=== PATIENT | male | born 1955 | race Caucasian/White ===

== ENCOUNTER → 2020-07-05 | Outpatient (CLI) | payer OTHER ==
[~2020-07-05] MED LIST: OMEPRAZOLE 20 M20 MG PO
== END ==
LOC: M.MRI 08:03
PROVIDERS: ATTEND Orthopaedic Surgery
DX: M25.462 Effusion, left knee (principal); M23.92 Unspecified internal derangement of left knee; M94.262 Chondromalacia, left knee; R60.0 Localized edema

== ENCOUNTER → 2020-07-20 | Outpatient (CLI) | payer OTHER ==
[~2020-07-20] MED LIST changes: +ACETAMINOPHEN500 M1 PO; +LISINOPRIL-HCT1 EACH PO; +PROTONIX40 M2 PO
[2020-07-20 10:40] LABS: HEMATOCRIT 46.9 % (42.0-52.0); HEMOGLOBIN 15.5 gm/dL (14.0-18.0); MCHC 33.1 g/dL (28.0-37.0); MCV 87.8 fL (80.0-100.0); MPV 8.2 fl. (7.2-11.1); RBC 5.34 mil/uL (4.50-6.00); RDW-CV 13.8 % (10.5-14.5); WBC 11.8 thou/uL (4.0-11.0)
[2020-07-20 10:48] LABS: URINE BILIRUBIN NEGATIVE (Negative); URINE BLOOD TRACE (Negative); URINE CLARITY CLEAR; URINE COLOR YELLOW; URINE GLUCOSE-RANDOM NEGATIVE (Negative); URINE KETONES NEGATIVE (Negative); URINE LEUKOCYTES-REFLEX NEGATIVE (Negative); URINE NITRITE-REFLEX NEGATIVE (Negative); URINE PROTEIN NEGATIVE (Negative); URINE UROBILINOGEN 0.2 E.U./dl (0.2-1.0)
[2020-07-20 10:55] LABS: PROTIME 10.5 Seconds (9.20-11.50)
[2020-07-20 10:58] LABS: ALBUMIN 3.7 g/dL (3.4-5.0); CALCIUM 10.6 mg/dL (8.5-10.1); POTASSIUM 4.3 mmol/L (3.5-5.1); TOTAL BILIRUBIN 0.6 mg/dL (<0.1-1.0); TOTAL PROTEIN 8.2 g/dL (6.4-8.2)
--- NOTE | 2020-07-20 15:43 | EKG ---
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
== END ==
LOC: M.LAB 10:27
PROVIDERS: ATTEND Orthopaedic Surgery
DX: Z01.812 Encounter for preprocedural laboratory examination (principal); Z20.828 Contact with and (suspected) exposure to other viral communicable diseases; M17.12 Unilateral primary osteoarthritis, left knee; I49.9 Cardiac arrhythmia, unspecified

== ENCOUNTER 2020-07-27 08:37 | Inpatient (IN) | payer OTHER ==
[~2020-07-27] VITALS: Ht 170.2 cm; Wt 99.8 kg
--- NOTE | ~2020-07-27 | OP ---
[facility] [address] [place] [address] OPERATIVE REPORT Name: CHANO MUSTAFA Room: [address] .R.#: [id number] Admission: 07/27/20 Attend Phys: Ivonne Palma Discharge: Date of : 53 Report #: [id number] THIS REPORT FOR: //name// cc: Mani Pinon Matthew DO ~ CC: Mani Rice DATE OF SERVICE: 07/27/2020 PREOPERATIVE DIAGNOSIS: Left knee osteoarthritis. POSTOPERATIVE DIAGNOSIS: Left knee osteoarthritis. PROCEDURE: Left total knee arthroplasty. SURGEON: Herbie Hernández DO RECONCILEMENT CLERK: TJ Silva ANESTHESIA: General endotracheal. ESTIMATED BLOOD LOSS: 50 mL. ANTIBIOTICS: Ancef preoperatively. DRAINS: Medium Hemovac. COMPLICATIONS: None. CONDITION OF THE PATIENT: Stable to recovery room. IMPLANTS: Listed in operative record and progress note. BRIEF HISTORY: The patient was seen in the preoperative area. Preoperative H and P was performed. Site was marked, questions were answered. Risks and benefits were discussed with the patient in detail about surgery. The patient wished to proceed, assuming all risks. DESCRIPTION OF PROCEDURE: The patient was taken to the operative suite and placed supine on the operative table, given appropriate anesthesia. A well-padded tourniquet was applied to the upper thigh, which was inflated to 300 mmHg after gravity exsanguination for the duration of procedure. The operative knee was sterilely prepped and draped. Surgery began by midline incision. This was carried down to the subcutaneous tissues. A medial [place] [address] OPERATIVE REPORT Name: CHANO MUSTAFA Room: [address] M.R.#: [id number] Admission: 07/27/20 Attend Phys: Ivonne Palma Discharge: Date of : 53 Report #: [id number] was performed and carried down to bone. Patella was then everted and excess soft tissue was removed from the femur. Femoral cutting block was then applied, checked with drop carter for rotational alignment and slope, pinned in appropriate position and appropriate cuts were made. A 4-in-1 cutting block was then applied, checked with drop carter for rotational alignment, pinned in appropriate position and appropriate cuts were made. The appropriate bone was removed. The tibia was then exposed and excess meniscus was removed. Retractor was placed on the collateral ligaments. Tibial cutting block was then applied, pinned in appropriate position, checked with drop carter for rotational alignment and slope and appropriate cut was made. Tibial bone was removed. Tibial base plate was then applied, checked for rotational alignment with the drop carter and pinned in appropriate position. The femur was then applied and box cut was reamed. This was trialed with appropriate spacer, which showed excellent fit and fill and excellent stability of the knee through all range of motion. The patella was reamed in appropriate fashion and sized to appropriate size. Three peg holes were drilled and it was then trialed and showed excellent flexion and extension, excellent tracking of the patella within the groove. These trials were then removed. The tibia was punched in appropriate fashion. Bone ends were cleansed with Pulsavac irrigation and cement was mixed and applied to final implants. These were then malleted into position and held the knee in extension and compressed to allow cement to cure. After it cured, excess was removed using [place] and osteotome. Wound was then copiously irrigated and the final spacer was then malleted into position. Tourniquet was deflated. Hemostasis was obtained with electrocautery. Pain cocktail was injected. PRP gel sprayed throughout the internal aspects of the knee. Medium Hemovac drain was applied. Capsule was closed with 2 FiberWire and 1 Vicryl in [id number] fashion. Skin was closed with 2-0 Vicryl and running 3-0 Monocryl. Dermabond and sterile dressing applied. Wallace wrap and PolarCare applied. The patient transported to recovery room in stable condition. Counts were correct throughout the procedure. By: [id number] Hernández II, DO /nt
[2020-07-27 09:18] VITALS: BP 137/84
[2020-07-27 18:01] VITALS: BP 128/68
[2020-07-27 20:00] VITALS: BP 132/70
[2020-07-28] VITALS (7 sets, daily range): BP systolic 99–127; BP diastolic 54–72
[2020-07-28 06:20] LABS: HEMATOCRIT 37.1 % (42.0-52.0); HEMOGLOBIN 12.7 gm/dL (14.0-18.0)
--- NOTE | 2020-07-28 07:30 | NUR ---
PATIENT SLEPT WELL DURING THIS SHIFT. PT GIVEN PERCOCET 2 TABS FOR PAIN. PT ON CPM THIS AM. PT WITH FLUIDS/ANTIBIOTICS INFUSING PER DR ORDER. PT VOIDS CLEAR YELLOW URINE. PT DENIES PAIN AT THIS TIME. FREQUENTLY USED ITEMS AND CALL LIGHT WITHIN REACH. SIDERAILS UP X2. WILL CONTINUE TO MONITOR.
[2020-07-28] MEDS ORDERED: XARELTO10 MG PO (08:53)
[2020-07-28] MEDS ORDERED: HYDROCODON-ACE1 EAC7 PO (08:53)
--- NOTE | 2020-07-28 15:39 | NUR ---
PATIENT DISCHARGED TO HOME AT THIS TIME. PARTICIPATED IN THERAPIES THIS AM AND AFTERNOON. IV DC'D. CPM USED THIS AM. HEMOVAC DC'D PER PROTOCOL. VERBALIZES UNDERSTANDING OF PAPERWORK AND SCRIPTS. PATIENT TAKEN OUT VIA WHEELCHAIR WITH ALL BELONGINGS.
--- NOTE | 2020-07-28 17:31 | NUR ---
PT.LIVES WITH . SHE WILL BE WITH HIM AT HOME TO ASSIST NEEDED. HE HAS A WALKER FOR HOME USE. CM CALLED IN [employer] PRESCRIPTION WRITTEN TO HIS PHARMACY. 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 PT.CHOSE [facility] . FAXED REFERRAL INFORMATION, DISCHARGE SUMMARY AND MED ORDERS TO [facility] [phone]. INFORMED OF DISCHARGE TODAY.
--- NOTE | 2020-07-28 18:18 | NUR ---
LATE ENTRY-RECIEVED O.T. ORDERS. WILL DEFER TO P.T. AT THIS TIME. PLEASE ORDER FURTHER O.T. SERVICES IF NEEDED.
== END 2020-07-28 15:43 | disposition home health service (06) | DRG 470 ==
LOC: M.TBA 08:37 → M.3W 10:30 → M.TBA 10:30 → EDSTATUS 10:52 → M.SUR 10:56 → EDSTATUS 11:01 → M.PRE 12:25 → M.3W 17:10
PROVIDERS: Orthopaedic Surgery; ADMIT Internal Medicine; ATTEND Internal Medicine
DX: M17.12 Unilateral primary osteoarthritis, left knee (principal); I10 Essential (primary) hypertension; K58.9 Irritable bowel syndrome, unspecified; E66.01 Morbid (severe) obesity due to excess calories; G47.33 Obstructive sleep apnea (adult) (pediatric); Z79.899 Other long term (current) drug therapy; Z68.34 Body mass index [BMI] 34.0-34.9, adult; Z99.81 Dependence on supplemental oxygen

== ENCOUNTER → 2020-08-30 | Outpatient (CLI) | payer OTHER ==
[~2020-08-30] MED LIST changes: +HYDROCODON-ACE1 EAC7 PO; +XARELTO10 MG PO
== END ==
LOC: M.RAD 11:12
PROVIDERS: ATTEND Orthopaedic Surgery
DX: M17.12 Unilateral primary osteoarthritis, left knee (principal); M25.462 Effusion, left knee